=== PATIENT | female | born 1990 | race Two or more races ===

== ENCOUNTER 2019-05-28 10:05 | Outpatient (CLI) | payer OTHER | END 2019-05-28 10:55 | disposition home or self-care (01) | LOC: NST 10:05 | DX: Z34.83 Encounter for supervision of other normal pregnancy, third trimester (principal) ==

== ENCOUNTER 2019-06-11 14:49 | Outpatient (CLI) | payer OTHER ==
[2019-06-11] MEDS ORDERED: PRENATABS RX T1 EACH PO (18:20)
== END 2019-06-12 10:44 | disposition home or self-care (01) ==
LOC: NST 14:49 → OBS/DEL 14:49
DX: O60.03 Preterm labor without delivery, third trimester (principal); O21.8 Other vomiting complicating pregnancy

== ENCOUNTER 2019-06-18 07:38 | Outpatient (CLI) | payer OTHER ==
[~2019-06-18 07:38] MED LIST: PRENATABS RX T1 EACH PO
== END 2019-06-18 09:00 | disposition home or self-care (01) ==
LOC: NST 07:38
DX: Z34.83 Encounter for supervision of other normal pregnancy, third trimester (principal)

== ENCOUNTER 2019-06-18 09:53 | Inpatient (IN) | payer OTHER ==
[~2019-06-18] VITALS: Ht 152.4 cm; Wt 66.2 kg
== END 2019-07-18 13:26 | disposition home or self-care (01) | DRG 788 ==
LOC: ADM 07-01 13:45 → EDSTATUS 07-01 13:45 → LDR 07-15 06:28 → OB/GYN 07-15 17:49
PROVIDERS: Obstetrics & Gynecology; ADMIT Obstetrics & Gynecology
PROC: 10907ZC Drainage of Amniotic Fluid, Therapeutic from Products of Conception, Via Natural or Artificial Opening (ICD-10-PCS; 2019-07-15)
PROC: 3E033VJ Introduction of Other Hormone into Peripheral Vein, Percutaneous Approach (ICD-10-PCS; 2019-07-15)
PROC: 4A1HXCZ Monitoring of Products of Conception, Cardiac Rate, External Approach (ICD-10-PCS; 2019-07-15)
PROC: 10D00Z1 Extraction of Products of Conception, Low, Open Approach (ICD-10-PCS; principal; 2019-07-15 15:00)
DX: O82 Encounter for cesarean delivery without indication (principal); O61.0 Failed medical induction of labor; Z3A.39 39 weeks gestation of pregnancy; Z37.0 Single live birth

== ENCOUNTER 2019-07-09 12:30 | Outpatient (CLI) | payer OTHER | END 2019-07-09 13:12 | disposition home or self-care (01) | LOC: NST 12:30 | DX: Z34.83 Encounter for supervision of other normal pregnancy, third trimester (principal) ==

== ENCOUNTER 2019-07-13 10:36 | Outpatient (CLI) | payer OTHER | END 2019-07-13 11:27 | disposition home or self-care (01) | LOC: NST 10:36 | DX: Z34.83 Encounter for supervision of other normal pregnancy, third trimester (principal) ==

== ENCOUNTER 2020-09-22 16:14 | Outpatient (CLI) | payer OTHER | END 2020-09-22 17:05 | disposition home or self-care (01) | LOC: OFIC 805 16:14 | PROVIDERS: ATTEND Otolaryngology | DX: J34.89 Other specified disorders of nose and nasal sinuses (principal); K21.9 Gastro-esophageal reflux disease without esophagitis; R09.81 Nasal congestion ==

== ENCOUNTER 2021-10-18 08:38 | Outpatient (CLI) | payer OTHER | END 2021-10-18 08:59 | disposition home or self-care (01) | LOC: RX STUDY 08:38 | PROVIDERS: ATTEND Internal Medicine Gastroenterology | DX: K56.600 Partial intestinal obstruction, unspecified as to cause (principal); C18.9 Malignant neoplasm of colon, unspecified; K57.92 Diverticulitis of intestine, part unspecified, without perforation or abscess without bleeding ==

== ENCOUNTER 2022-06-28 08:37 | Outpatient (CLI) | payer OTHER | END 2022-06-28 08:38 | disposition home or self-care (01) | LOC: MRI 08:37 | PROVIDERS: ATTEND Internal Medicine | DX: G35 Multiple sclerosis (principal) | CPT/HCPCS: 72142 ==

== ENCOUNTER 2023-05-17 20:05 | Emergency (ER) | payer OTHER ==
[~2023-05-17] VITALS: Ht 165.1 cm; Wt 61.7 kg
== END 2023-05-18 00:01 | disposition home or self-care (01) ==
LOC: ER 20:05
DX: M62.838 Other muscle spasm (principal)

== ENCOUNTER 2025-04-15 10:16 | Emergency (ER) | payer OTHER ==
[~2025-04-15] VITALS: Ht 160 cm; Wt 59.0 kg
[2025-04-15] MEDS ORDERED: DICLOFENAC SODI75 MG PO (11:42)
[2025-04-15] MEDS ORDERED: NORFLEX100MG PO (11:42)
[2025-04-15] MEDS ORDERED: DEXAMETHASONE SODIUM PHOSPHATE 4 MG/ML VIAL IM ONE (11:45)
[2025-04-15] MEDS ORDERED: ORPHENADRINE CITRATE 30 MG/ML AMPUL IM ONE (11:45)
[2025-04-15] MEDS ORDERED: KETOROLAC TROMETHAMINE 60 MG VIAL IM ONE ×2 (11:45→11:54)
[2025-04-15] MEDS ORDERED: ORPHENADRINE CITRATE 30 MG/ML AMPUL ONE (11:54)
[2025-04-15] MEDS ORDERED: DEXAMETHASONE SODIUM PHOSPHATE 4 MG/ML VIAL ONE (11:54)
== END 2025-04-15 12:11 | disposition home or self-care (01) ==
LOC: ER 10:16
DX: M54.50 Low back pain, unspecified (principal); Z88.0 Allergy status to penicillin

== ENCOUNTER 2025-06-15 10:23 | Outpatient (CLI) | payer OTHER ==
[~2025-06-15 10:23] MED LIST changes: +DICLOFENAC SODI75 MG PO; +NORFLEX100MG PO
== END 2025-06-15 10:28 | disposition home or self-care (01) ==
LOC: MAMO-SONO 10:23
DX: C50.919 Malignant neoplasm of unspecified site of unspecified female breast (principal)